=== PATIENT | female | born 1950 | race Two or more races ===

== ENCOUNTER 2024-12-31 05:15 | Day surgery (SDC) | payer MEDICARE ==
[2024-12-31] MEDS ORDERED: ANESTHESIA TRAY IN PYXIS 1 EA TRAY MC ONE (05:54)
[2024-12-31] MEDS ORDERED: BUPIVACAINE 0.5 % PF 150 MG/30 ML VIAL ONE (05:55)
[2024-12-31] MEDS ORDERED: SEVOFLURANE 250 ML BOTTLE IH ONE (06:06)
[2024-12-31] MEDS ORDERED: SUGAMMADEX SODIUM 200 MG/2 ML VIAL IV ONE (06:07)
[2024-12-31] MEDS ORDERED: FENTANYL PF 100MCG/2ML AMPUL ONE (06:07)
[2024-12-31] MEDS ORDERED: ROPIVACAINE HCL 0.5% 5 MG/ML 30ML VIAL ONE (06:07)
[2024-12-31] MEDS ORDERED: VASOPRESSIN INJ 20 UNIT/ML VIAL ONE (06:08)
[2024-12-31] MEDS ORDERED: ROCURONIUM BROMIDE 50 MG/5 ML ONE (06:08)
[2024-12-31] MEDS ORDERED: LIDOCAINE 1% INJ 50 ML MDV IJ ONE (06:08)
[2024-12-31] MEDS ORDERED: SUCCINYLCHOLINE CHLORIDE 20 MG/ML VIAL ONE (06:08)
[2024-12-31] MEDS ORDERED: TRANEXAMIC ACID 1,000 MG/10 ML VIAL ONE ×2 (07:05→08:07)
[2024-12-31] MEDS ORDERED: MAGNESIUM HYDROXIDE 30 ML UDC PO PRN (10:00)
[2024-12-31] MEDS ORDERED: ONDANSETRON HCL/PF 4 MG/2 ML VIAL IV PRN (10:00)
[2024-12-31] MEDS ORDERED: CLONIDINE HCL 0.1 MG TABLET PO PRN (10:00)
[2024-12-31] MEDS ORDERED: oxyCODONE IR immediate release 5 MG TABLET PO PRN ×2 (10:00)
[2024-12-31] MEDS ORDERED: MENTHOL/CETYLPYRD (CEPACOL) 1 LOZ LOZENGE PO PRN (10:00)
[2024-12-31] MEDS ORDERED: HYDROMORPHONE 1 MG/1 ML DISP.SYRIN IM/IV/SC PRN (10:00)
[2024-12-31] MEDS ORDERED: MAG HYDROX/AL HYDROX/SIMETH 30 ML UDC PO PRN (10:00)
[2024-12-31] MEDS ORDERED: BISACODYL SUPP (10 MG) 10 MG/SUPP.RECT SUPP.RECT RC PRN (10:30)
[2024-12-31] MEDS ORDERED: IV D5/0.45 NACL 1,000 ML IV PRN (10:30)
[2024-12-31] MEDS ORDERED: ACETAMINOPHEN 325 MG TABLET PO PRN (10:30)
[2024-12-31] MEDS ORDERED: ANCEF 1 GM/50 ML D5W IV SCH (14:00)
[2024-12-31] MEDS ORDERED: DOCUSATE SODIUM 100 MG CAPSULE PO SCH (17:00)
[2024-12-31] MEDS ORDERED: SENNOSIDES 8.6 MG TABLET PO SCH (22:00)
[2024-12-31] MEDS ORDERED: PANTOPRAZOLE 40 MG TABLET.DR PO SCH (22:00)
[2025-01-01] MEDS ORDERED: ASPIRIN 325 MG TABLET PO SCH (09:00)
== END 2024-12-31 14:05 | disposition home or self-care (01) ==
LOC: DS 05:15
PROVIDERS: ATTEND Specialist
DX: S43.001A Unspecified subluxation of right shoulder joint, initial encounter (principal); E11.9 Type 2 diabetes mellitus without complications; E66.01 Morbid (severe) obesity due to excess calories; E03.9 Hypothyroidism, unspecified; D69.6 Thrombocytopenia, unspecified; I10 Essential (primary) hypertension; K21.9 Gastro-esophageal reflux disease without esophagitis; K59.03 Drug induced constipation; M12.9 Arthropathy, unspecified; Z79.899 Other long term (current) drug therapy; Z82.49 Family history of ischemic heart disease and other diseases of the circulatory system; Z88.1 Allergy status to other antibiotic agents; Z88.2 Allergy status to sulfonamides; Z88.5 Allergy status to narcotic agent; Z90.710 Acquired absence of both cervix and uterus; Z96.611 Presence of right artificial shoulder joint; Z96.659 Presence of unspecified artificial knee joint; Z98.890 Other specified postprocedural states; X58.XXXA Exposure to other specified factors, initial encounter; Y93.89 Activity, other specified; Y92.89 Other specified places as the place of occurrence of the external cause; Y99.8 Other external cause status
CPT/HCPCS: 23472; 82962; A4217; A4565; A6209; A6223; C1713; C1776; J0330; J0690; J1100; J1885; J2405; J2704; J2765; J2795; J3010; J3490; J7030; J7060; J1171; Q0163